=== PATIENT | male | born 1990 | race Caucasian/White ===

== ENCOUNTER 2019-03-01 19:13 | Emergency (ER) | payer BC ==
--- NOTE | 2019-03-01 20:20 | EDM.PDOC ---
ED HPI GENERAL MEDICAL PROBLEM - General Chief Complaint: Cardiovascular Problem Stated Complaint: HEART PALPATIONS Time Seen by Provider: 03/01/19 19:22 Source of Information: Reports: Patient History Limitations: Reports: No Limitations - History of Present Illness INITIAL COMMENTS - FREE TEXT/NARRATIVE: 28-year-old male presents for evaluation and treatment of chest palpitations. States that the palpitations started suddenly around 1800, subsided after an hour on their own. He states that it felt like heart was beating hard. He denies any chest pain, shortness breath, lightheadedness, dizziness, syncope, fevers, chills, nausea or vomiting. States his never had anything like this before. States he drinks 2 energy drinks daily but no other caffeine. Denies any alcohol use or any illicit drug use.is - Related Data Allergies Allergy/AdvReac Type Severity Reaction Status Date / Time No Known Allergies Allergy Verified 03/01/19 19:31 Home Meds: Home Meds . [No Known Home Meds] 03/01/19 [History] Past Medical History - Past Surgical History HEENT Surgical History: Reports: Oral Surgery Social & Family History - Tobacco Use Smoking Status *Q: Current Every Day Smoker Years of Tobacco use: 7 Packs/Tins Daily: 1 - Caffeine Use Caffeine Use: Reports: Energy Drinks - Recreational Drug Use Recreational Drug Use: No ED ROS GENERAL - Review of Systems Review Of Systems: See Below Constitutional: Denies: Fever, Chills Respiratory: Denies: Shortness of Breath Cardiovascular: Reports: Palpitations. Denies: Chest Pain, Lightheadedness, Syncope GI/Abdominal: Denies: Abdominal Pain, Nausea, Vomiting Neurological: Denies: Dizziness, Headache, Syncope ED EXAM, GENERAL - Physical Exam Exam: See Below Exam Limited By: No Limitations General Appearance: Alert, WD/WN, No Apparent Distress Eye Exam: Bilateral Eye: Normal Inspection Ears: Normal External Exam Nose: Normal Inspection Throat/Mouth: Normal Inspection, Normal Lips, Normal Voice, No Airway Compromise Respiratory/Chest: No Respiratory Distress, Lungs Clear, Normal Breath Sounds Cardiovascular: No Murmur, Tachycardia GI/Abdominal: Normal Bowel Sounds, Soft, Non-Tender Neurological: Alert, Oriented, Normal Cognition Psychiatric: Normal Affect, Normal Mood Skin Exam: Warm, Dry, Normal Color EKG INTERPRETATION EKG Date: 03/01/19 Time: 19:31 Rhythm: Other (sinus tachycardia) Rate (Beats/Min): 111 [place]: Normal P-Wave: Present QRS: Normal ST-T: Normal QT: Normal EKG Interpretation Comments: Sinus tach rate of 111. No acute St-T wave changes. No ischemia noted. Reviewed by myself and Dr. Haque. Course - Vital Signs Last Recorded V/S: Last Vital Signs Temp 99.7 F 03/01/19 19:28 Pulse 96 03/01/19 19:28 Resp 21 H 03/01/19 19:28 BP 151/69 H 03/01/19 19:28 Pulse Ox 98 03/01/19 19:28 - Orders/Labs/Meds Labs: Laboratory Tests 03/01/19 03/01/19 Range/Units 20:05 20:05 WBC 8.79 (4.23-9.07) K/mm3 RBC 4.73 (4.63-6.08) M/mm3 Hgb 15.4 (13.7-17.5) gm/dl Hct 44.2 (40.1-51.0) % MCV 93.4 H (79.0-92.2) fl MCH 32.6 H (25.7-32.2) pg MCHC 34.8 (32.2-35.5) g/dl RDW Std Deviation 43.1 (35.1-43.9) fL Plt Count 170 (163-337) K/mm3 MPV 10.6 (9.4-12.3) fl Neut % (Auto) 63.6 (34.0-67.9) % Lymph % (Auto) 25.5 (21.8-53.1) % Crockett % (Auto) 7.1 (5.3-12.2) % Eos % (Auto) 3.4 (0.8-7.0) Baso % (Auto) 0.2 (0.1-1.2) % Neut # (Auto) 5.59 H (1.78-5.38) K/mm3 Lymph # (Auto) 2.24 (1.32-3.57) K/mm3 [place]ckett # (Auto) 0.62 (0.30-0.82) K/mm3 Eos # (Auto) 0.30 (0.04-0.54) K/mm3 Baso # (Auto) 0.02 (0.01-0.08) K/mm3 Sodium 137 (136-145) mEq/L Potassium 3.3 L (3.5-5.1) mEq/L Chloride 102 (98-107) mEq/L Carbon Dioxide 25 (21-32) mEq/L Anion Gap 13.3 (5-15) BUN 19 H (7-18) mg/dL Creatinine 1.4 H (0.7-1.3) mg/dL Est Cr Clr Drug Dosing 70.26 mL/min Estimated GFR (MDRD) 60 (>60) mL/min BUN/Creatinine Ratio 13.6 L (14-18) Glucose 160 H (74-106) mg/dL Calcium 8.6 (8.5-10.1) mg/dL Magnesium 1.6 L (1.8-2.4) mg/dl Total Bilirubin 0.4 (0.2-1.0) mg/dL AST 31 (15-37) U/L ALT 23 (16-63) U/L Alkaline Phosphatase 85 (46-116) U/L Total Protein 6.5 (6.4-8.2) g/dl Albumin 3.8 (3.4-5.0) g/dl Globulin 2.7 gm/dL Albumin/Globulin Ratio 1.4 (1-2) TSH 3rd Generation 1.168 (0.358-3.74) uIU/mL - Re-Assessments/Exams Free Text/Narrative Re-Assessment/Exam: 03/01/19 21:31 Reviewed the EKG and labs with the patient. He is anxious to go at this time. We discussed a Holter monitor. He declines at this time but he will follow-up with his symptoms reappear and considered at that time. Discharge instructions as documented. Departure - Departure Time of Disposition: 21:37 Disposition: Home, Self-Care 01 Condition: Fair Clinical Impression: Heart palpitations Instructions: Palpitations, [id number] Referrals: PCP,None [Primary Care Provider] - Forms: ED Department Discharge Additional Instructions: Make sure you're drinking plenty of fluids. Recommend avoiding caffeine and alcohol. Follow-up with family medicine in 1-2 weeks for recheck of your symptoms. Recommend renata Alba or Faith simons at the [facility]. Call [phone] to schedule with one of these providers. Please return the ER for symptoms change or worsen.
== END 2019-03-01 21:40 | disposition home or self-care (01) ==
LOC: JD.ED 19:13
DX: R00.2 Palpitations (principal); F17.210 Nicotine dependence, cigarettes, uncomplicated
CPT/HCPCS: 36415; 80053; 83735; 84443; 85025; 93010; 99283; 99285-25

== ENCOUNTER 2019-05-12 22:00 | Emergency (ER) | payer BC ==
[2019-05-12] MEDS ORDERED: Doxycycline 100 MG Cap PO STA (22:25)
--- NOTE | 2019-05-12 22:37 | EDM.PDOC ---
ED HPI GENERAL MEDICAL PROBLEM - General Chief Complaint: Skin Complaint Stated Complaint: RIGHT SIDE RASH AND BOIL Time Seen by Provider: 05/12/19 22:05 Source of Information: Reports: Patient History Limitations: Reports: No Limitations - History of Present Illness INITIAL COMMENTS - FREE TEXT/NARRATIVE: Mr. Millan is a very pleasant 28-year-old man with no chronic medical issues, who states that he developed a pruritic rash to his lower right abdomen about 1 month ago. He has been scratching it. He applied an antifungal foot cream to the area once a day for 4 to 5 days, a few weeks ago, but it did not help, therefore he abandoned the effort. He then developed a single pustule inferior to the rash about 7 days ago. He is concerned that the pustule represents a staph infection, as he had similar pustules when a tattoo became infected in the past. No history of MRSA, and the patient does not use antibacterial soap at home or visit anyone in the hospital or senior living. Other than the rash, the patient denies recent fever, chills, cough, dyspnea, chest pain, palpitations, nausea, vomiting, constipation, diarrhea, abdominal pain, urinary symptoms, recent weight gain or weight loss, recent bloody bowel movements or black bowel movements, recent joint aches, or headaches. Here in the ED, the patient is found to be hemodynamically stable, afebrile, saturating 100% on room air. The patient does not have a PCP. He did not receive an influenza vaccine this season, but declined an offer to receive one here today. - Related Data Allergies Allergy/AdvReac Type Severity Reaction Status Date / Time No Known Allergies Allergy Verified 05/12/19 22:10 Home Meds: Home Meds Doxycycline [Vibramycin] 1 cap PO Q12H #19 cap 05/12/19 [Rx] Past Medical History Musculoskeletal History: Reports: Fracture (left wrist) - Past Surgical History HEENT Surgical History: Reports: Oral Surgery (wisdom teeth extraction), Other ( See Below) (Mandible wired) Musculoskeletal Surgical History: Reports: ORIF (left wrist) Social & Family History - Tobacco Use Smoking Status *Q: Current Every Day Smoker Tobacco Use Within Last Twelve Months: Smokeless Tobacco (chews on occasion) Years of Tobacco use: 13 Packs/Tins Daily: 0.5 Packs/Tins Daily Comment: Down from 03/27 ppd - Caffeine Use Caffeine Use: Reports: Energy Drinks - Alcohol Use Alcohol Use History: No - Recreational Drug Use Recreational Drug Use: No - Living Situation & Occupation Living situation: Reports: , with Significant Other (Girlfriend), with Family (2 sons) Occupation: Employed ([employer]) ED ROS GENERAL - Review of Systems Review Of Systems: Comprehensive ROS is negative, except as noted in HPI. ED EXAM, SKIN/RASH Exam: See Below Exam Limited By: No Limitations General Appearance: Alert, WD/WN, No Apparent Distress Skin: Other (On the patient's lower right quadrant, there is an approximately 9 cm x 5 cm patch of hyperpigmented skin with lichenification, within which are numerous red specks, concerning for a bacterial superinfection. Inferior to the rash is a single pustule.) Course - Vital Signs Last Recorded V/S: Last Vital Signs Temp 36.9 C 05/12/19 22:05 Pulse 78 05/12/19 22:05 Resp 14 05/12/19 22:05 BP 144/68 H 05/12/19 22:05 Pulse Ox 100 05/12/19 22:05 - Orders/Labs/Meds Meds: Medications Discontinued Medications Generic Name Dose Route Start Last Admin Trade Name Cheryl PRN Reason Stop Dose Admin Doxycycline Hyclate 100 mg 05/12/19 22:25 05/12/19 22:40 Vibramycin PO 05/12/19 22:26 100 mg ONETIME STA Administration - Re-Assessments/Exams Free Text/Narrative Re-Assessment/Exam: 05/12/19 22:26 As per the HPI, the patient has an approximately 9 cm by 5 cm patch of hyperpigmented skin to his lower right abdomen with evidence of lichenification. I am not certain that the original rash is due to a fungal infection, but I think it is worth treating with an antifungal cream to see if it improves. Whatever the cause, I also suspect that he has a bacterial superinfection due to scratching. I am therefore starting the patient on a 10- day course of oral doxycycline. If his rash does not significantly improve by then, I would like him to follow-up in the clinic. Departure - Departure Time of Disposition: 22:28 Disposition: Home, Self-Care 01 Condition: Good Clinical Impression: Skin rash - Discharge Information *PRESCRIPTION DRUG MONITORING PROGRAM REVIEWED*: Not Applicable *COPY OF PRESCRIPTION DRUG MONITORING REPORT IN PATIENT DEVEN: Not Applicable Prescriptions: Doxycycline [Vibramycin] 1 cap PO Q12H #19 cap Instructions: Rash, [id number] Referrals: Dinesh Alba PA-C [Physician Nursing Unit Clerk] - Forms: ED Department Discharge Additional Instructions: You were seen in the emergency room for an itchy rash on your lower right abdomen for the past month. Based on your history and physical examination, the original cause of the rash is unclear. It may be due to an underlying skin condition, such as eczema, or it may be due to a fungal infection. In addition, however, we suspect that you may have a bacterial superinfection due to scratching it. You have been started on the antibiotic doxycycline, and a prescription for doxycycline has been sent to the [facility], located just south and across the [address] from [facility]. Take 1 tablet of doxycycline every 12 hours, as prescribed. Finish the entire prescription unless told otherwise by a doctor. In addition, we recommend that you apply an antifungal cream or ointment, such as clotrimazole, miconazole, or terbinafine to the affected area twice a day, for at least 10 days. If, after 10 days, your rash has not significantly improved, please follow-up with [facility], or one of the other providers in the clinic. If any other problems, please do not hesitate to return to the ER. Sepsis Event Note - Evaluation Sepsis Screening Result: No Definite Risk - Focused Exam Vital Signs: Vital Signs Temp Pulse Resp BP Pulse Ox 05/12/19 22:05 36.9 C 78 14 144/68 H 100 Date Exam was Performed: 05/13/19 Time Exam was Performed: 04:36
== END 2019-05-12 22:42 | disposition home or self-care (01) ==
LOC: JD.ED 22:00
DX: R21 Rash and other nonspecific skin eruption (principal); F17.210 Nicotine dependence, cigarettes, uncomplicated; F17.220 Nicotine dependence, chewing tobacco, uncomplicated
CPT/HCPCS: 99282; A9270

== ENCOUNTER 2022-10-08 16:20 | Emergency (ER) | payer OTHER, MEDICAID ==
[2022-10-08] MEDS ORDERED: Ibuprofen 800 MG Tab PO ONE (17:56)
== END 2022-10-08 18:33 | disposition home or self-care (01) ==
LOC: JD.ED 16:20
DX: S83.512A Sprain of anterior cruciate ligament of left knee, initial encounter (principal); V29.99XA Rider (driver) (passenger) of other motorcycle injured in unspecified traffic accident, initial encounter; Y92.410 Unspecified street and highway as the place of occurrence of the external cause
CPT/HCPCS: 73562-26-LT; 73562-LT; 99283